=== PATIENT | male | born 1990 | race Two or more races ===

== ENCOUNTER 2019-04-21 08:35 | Emergency (ER) | payer BC ==
[~2019-04-21] VITALS: Ht 165.1 cm; Wt 61.2 kg
[2019-04-21 09:05] VITALS: BP 130/83
[2019-04-21] MEDS ORDERED: FLUORESCEIN OPHTH TEST STRIP. OS ONE (09:15)
[2019-04-21] MEDS ORDERED: TETRACAINE 0.5% OPHTH SOLUTION 4ML BOTTLE. OS ONE (09:15)
[2019-04-21] MEDS ORDERED: DIPHTH,PERTUSS(ACELL),TET TOX 0.5 ML DISP.SYRIN. VAX IM ONE (09:15)
--- NOTE | 2019-04-21 09:31 | PHYS DOC ---
Past Medical History Past Medical History: No Pertinent History (FUNMI SEBASTIAN APRN) Past Surgical History: No Surgical History (FUNMI SEBASTIAN APRN) Alcohol Use: Occasionally Drug Use: None (FUNMI SEBASTIAN APRN) Adult General Chief Complaint Chief Complaint: EYE PROBLEMS HPI HPI Patient is a 28 year old male who presents with sensation of foreign body to the right eye, patient states he was cutting wood with a chain saw and believes a piece of wood could've gotten into his right eye. Patient states he might have been wearing eye protection. Patient denies any vision loss. (FUNMI SEBASTIAN APRN) Review of Systems Review of Systems Constitutional: Denies fever or chills [] Eyes:Reports foreign object to the right eye. Denies change in visual acuity, Musculoskeletal: Denies back pain or joint pain [] Integument: Denies rash or skin lesions [] Neurologic: Denies headache, focal weakness or sensory changes [] All other systems were reviewed and found to be within normal limits, except as documented in this note. (FUNMI SEBASTIAN APRN) Current Medications Current Medications Current Medications Medications (Trade) Dose Ordered Sig/Rosalva Start Time Stop Time Status Last Admin Dose Admin Diphtheria/ Tetanus/Acell Pertussis (Boostrix) 0.5 ml ONCE ONCE 04/21/19 09:15 04/21/19 09:21 DC 04/21/19 09:25 0.5 ML Fluorescein Sodium (Ful-Saima) 1 strip 1X ONCE 04/21/19 09:15 04/21/19 09:21 DC 04/21/19 09:24 1 STRIP Tetracaine HCl (Tetracaine) 1 drop 1X ONCE 04/21/19 09:15 04/21/19 09:21 DC 04/21/19 09:23 1 DROP (CROW DA SILVA MD) Allergies Allergies Allergies Coded Allergies Type Severity Reaction Last Updated Verified No Known Drug Allergies 04/21/19 No (CROW DA SILVA MD) Physical Exam Physical Exam Constitutional: Well developed, well nourished, no acute distress, non-toxic appearance. [] HENT: Normocephalic, atraumatic, bilateral external ears normal, oropharynx moist, no oral exudates, nose normal. [] Eyes: PERRLA, EOMI, right conjunctiva is mildly injected. Vision exam under knox lamp-right eye numbed with tetracaine and stained with fluorescein. Small corneal abrasion noted on the base of the cornea. Skin: Warm, dry, no erythema, no rash. [] Back: No tenderness, no CVA tenderness. [] Extremities: No tenderness, no cyanosis, no clubbing, ROM intact, no edema. [] Neurologic: Alert and oriented X 3, normal motor function, normal sensory function, no focal deficits noted. [] Psychologic: Affect normal, judgement normal, mood normal. [] (FUNMI SEBASTIAN APRN) Current Patient Data Vital Signs Vital Signs Date Time Temp Pulse Resp B/P (MAP) Pulse Ox O2 Delivery O2 Flow Rate FiO2 04/21/19 09:05 97.5 60 14 130/83 (99) 99 Room Air 97.5 (CROW DA SILVA MD) EKG EKG [] (FUNMI SEBASTIAN APRN) Radiology/Procedures Radiology/Procedures [] (FUNMI SEBASTIAN APRN) Course & Med Decision Making Course & Med Decision Making Pertinent Labs and Imaging studies reviewed. (See chart for details) This is a 28-year-old male patient who presents to the ED today concerned he could have a foreign object in the right eye, he was cutting wood with a chain saw yesterday and a piece of wood could've gotten into his right eye. Physical exam patient was noted to have cornea abrasion to the right eye. Discharged with erythromycin. Importance of eye protection discussed. Tetanus updated. Ophthalmology provided for follow-up. (FUNMI SEBASTIAN APRN) Course & Med Decision Making Staff Physician Addendum: I was working in the ER during the course of this patient's visit. I was available for consultation as needed, but I was not directly involved in the care of this patient. (CROW DA SILVA MD) Dragon Disclaimer Dragon Disclaimer This electronic medical record was generated, in whole or in part, using a voice recognition dictation system. (FUNMI SEBASTIAN APRN) Departure Departure Impression: Primary Impression: Corneal abrasion, right Disposition: HOME, SELF-CARE Condition: STABLE Referrals: NO PCP (PCP) SHANTELL MCCLOUD MD follow up in one week Patient Instructions: Eye - Corneal Abrasion Additional Instructions: You have a corneal abrasion to the right eye. We sent you home with a prescription for erythromycin, use it as prescribed. Please follow-up with the provided licensed bondsman in the next 7 days. Please always use eye protection when working with items that can cause fly into the eye Scripts Erythromycin Base (Erythromycin) 1 Gm Oint...g. 1 GM OP Q4HRS W/A, #1 MISC Apply 0.5 inch to the right eye every 4 hours while awake for 7 days Prov: FUNMI SEBASTIAN APRN 04/21/19 Problem Qualifiers Primary Impression: Corneal abrasion, right Encounter type: initial encounter Qualified Codes: S05.01XA - Injury of conjunctiva and corneal abrasion without foreign body, right eye, initial encounter FUNMI SEBASTIAN APRN Apr 21, 2019 09:31 CROW DA SILVA MD Apr 21, 2019 12:22
[2019-04-21] MEDS ORDERED: ERYT1OIN6 OP (09:51)
== END 2019-04-21 10:02 | disposition home or self-care (01) ==
LOC: ER 08:35
DX: S05.01XA Injury of conjunctiva and corneal abrasion without foreign body, right eye, initial encounter (principal); W26.8XXA Contact with other sharp object(s), not elsewhere classified, initial encounter; Y93.89 Activity, other specified; Y92.89 Other specified places as the place of occurrence of the external cause; Y99.8 Other external cause status
CPT/HCPCS: 90471; 90715; 99283